=== PATIENT | female | born 1990 | race Caucasian/White ===

== ENCOUNTER 2018-01-13 21:15 | Emergency (ER) | payer SELFPAY ==
[2018-01-13] MEDS: IBUPROFEN 800 MG TABLET. PO (22:30)
[2018-01-13] MEDS: DIPHTH,PERTUSS(ACELL),TET TOX 0.5 ML DISP.SYRIN. VAX IM (22:31)
[2018-01-13] MEDS: HYDROcodone/APAP 5/325MG 1 TAB TABLET PO (23:45)
== END 2018-01-13 23:47 | disposition home or self-care (01) ==
LOC: ER 21:15
DX: S00.83XA Contusion of other part of head, initial encounter (principal); S00.81XA Abrasion of other part of head, initial encounter; S51.851A Open bite of right forearm, initial encounter; S80.912A Unspecified superficial injury of left knee, initial encounter; F12.10 Cannabis abuse, uncomplicated; Y04.1XXA Assault by human bite, initial encounter; Y93.89 Activity, other specified; Y99.8 Other external cause status; Y92.89 Other specified places as the place of occurrence of the external cause
CPT/HCPCS: 70450; 70486; 73562; 90471; 90715; 99284-25